=== PATIENT | female | born 1990 | race Caucasian/White ===

== ENCOUNTER 2021-09-12 09:30 | Outpatient (CLI) | payer BC ==
[2021-09-12 19:21] LABS: SARS-CoV-2 PCR by NAA Not Detected (NotDetected)
== END 2021-09-12 09:31 | disposition home or self-care (01) ==
LOC: CSHLAB 09:30
PROVIDERS: ATTEND Obstetrics & Gynecology
DX: Z20.822 Contact with and (suspected) exposure to COVID-19 (principal)
CPT/HCPCS: U0003; U0005

== ENCOUNTER 2021-09-13 09:06 | Inpatient (IN) | payer BC ==
[2021-09-13] MEDS ORDERED: Diphenoxylate HCl/Atropine Tablet PO PRN (10:03)
[2021-09-13] MEDS ORDERED: Promethazine HCl 25 MG/ML VIAL IM PRN ×2 (10:03→17:21)
[2021-09-13] MEDS ORDERED: hydrALAZINE 20 MG/ML VIAL SLOW IVP PRN (10:03)
[2021-09-13] MEDS ORDERED: Methylergonovine 0.2 MG/ML VIAL IM PRN (10:03)
[2021-09-13] MEDS ORDERED: Butorphanol Tartrate 1 MG/ML VIAL SLOW IVP PRN (10:03)
[2021-09-13] MEDS ORDERED: Ibuprofen 800 MG TAB PO PRN (10:03)
[2021-09-13] MEDS ORDERED: Carboprost 250 MCG/ML AMP IM PRN (10:03)
[2021-09-13] MEDS ORDERED: Lidocaine 1% (PF) 30 ML VIAL SC PRN (10:03)
[2021-09-13] MEDS ORDERED: Ondansetron PF 4 MG/2 ML Vial IVP PRN ×2 (10:03→17:21)
[2021-09-13] MEDS ORDERED: Fentanyl 2 mcg/Bup 0.1% Cadd 100 ML ONE ×2 (10:11→17:11)
[2021-09-13 10:12] LABS: Hemoglobin 11.1 g/dL (12.0-15.5); Mean Corpuscular HGB CONC 33.1 g/dL (32.0-36.0); Mean Corpuscular Volume 84.6 fl (81.6-98.3); Mean Platelet Volume 10.5 fl (7.4-10.4); Platelet Count 262 10x3/uL (150-450); RBC Distribution Width 12.7 % (11.5-14.5); Red Blood Cell (RBC) Count 3.96 10x6/uL (3.90-5.03)
[2021-09-13] MEDS ORDERED: NS w/ Oxytocin 30 units 500 ML IV SCH ×2 (10:15)
[2021-09-13 10:16] VITALS: BMI 42.3
[2021-09-13 10:47] LABS: Hep B Surf Ag Non-Reactive S/CO (NonReactive); Syphilis Antibody Nonreactive (Nonreactive); Syphilis Antibody Index 0.05 S/CO (<1.00 Non-Reactive)
[2021-09-13 10:57] LABS: HBSAg Index 0.19 S/CO (0-0.99)
[2021-09-13] MEDS ORDERED: Hydrocerin (Eucerin) Cream 120 gm Jar TOP PRN (17:21)
[2021-09-13] MEDS ORDERED: diphenhydrAMINE 50 MG/ML VIAL IVP PRN (17:21)
[2021-09-13] MEDS ORDERED: Acetaminophen 325 MG TAB PO PRN (17:21)
[2021-09-13] MEDS ORDERED: Naloxone HCl 0.4 mg/ml Vial IVP PRN ×2 (17:21)
[2021-09-13] MEDS ORDERED: Lactated Ringer's 500 ML IV PRN (17:21)
[2021-09-13] MEDS ORDERED: ePHEDrine Sulfate 50 MG/10 ML VIAL SLOW IVP PRN (17:21)
[2021-09-13] MEDS ORDERED: Communication Order-Pharmacy FS SCH (17:30)
[2021-09-13] MEDS ORDERED: Fentanyl 2 mcg/Bupivacaine 0.1% Cassette 100 ML EPIDURAL SCH (17:30)
[2021-09-13] MEDS ORDERED: Bisacodyl 10 MG SUPP PR PRN (19:10)
[2021-09-13] MEDS ORDERED: Milk Of Magnesia 30 ML UDCUP PO PRN (19:10)
[2021-09-13] MEDS ORDERED: Lanolin Ointment 7 GM TUBE TOP PRN (19:10)
[2021-09-13] MEDS ORDERED: Zolpidem Tartrate 5 MG TAB PO PRN (19:10)
[2021-09-13] MEDS ORDERED: Benzocaine-Menthol 82.5 ML CAN TOP PRN (19:10)
[2021-09-13] MEDS: Docusate 100 MG CAP PO SCH (22:12)
[2021-09-13] MEDS ORDERED: Acetaminophen 500 MG TAB PO PRN (22:49)
[2021-09-14 05:42] LABS: Hemoglobin 9.2 g/dL (12.0-15.5)
[2021-09-14] MEDS: Lactated Ringer's 1,000 ML IV SCH ×4 (07:31→19:12)
[2021-09-14] MEDS: Ferrous Sulfate 325 MG TAB PO SCH ×2 (08:25→18:26)
[2021-09-14] MEDS: Docusate 100 MG CAP PO SCH ×2 (08:25→21:35)
[2021-09-14] MEDS: Ibuprofen 800 MG TAB PO PRN (08:31)
[2021-09-15] MEDS: Lactated Ringer's 1,000 ML IV SCH (07:08)
[2021-09-15 08:25] VITALS: BP 125/61; TEMP 98.1
[2021-09-15] MEDS: Ibuprofen 800 MG TAB PO PRN (08:28)
[2021-09-15] MEDS: Ferrous Sulfate 325 MG TAB PO SCH (08:29)
[2021-09-15] MEDS: Docusate 100 MG CAP PO SCH (08:29)
== END 2021-09-15 11:20 | disposition home or self-care (01) | DRG 807 ==
LOC: CSHLD/OP 09:06 → CSHLD 19:24 → CSHPP 21:30
PROVIDERS: ADMIT Obstetrics & Gynecology; ATTEND Obstetrics & Gynecology
PROC: 10E0XZZ Delivery of Products of Conception, External Approach (ICD-10-PCS; principal; 2021-09-13)
PROC: 10907ZC Drainage of Amniotic Fluid, Therapeutic from Products of Conception, Via Natural or Artificial Opening (ICD-10-PCS; 2021-09-13)
DX: O77.0 Labor and delivery complicated by meconium in amniotic fluid (principal); Z37.0 Single live birth; O99.62 Diseases of the digestive system complicating childbirth; O99.02 Anemia complicating childbirth; Z3A.39 39 weeks gestation of pregnancy; K21.9 Gastro-esophageal reflux disease without esophagitis
CPT/HCPCS: 36415; 85014; 85018; 85027; 86780; 86850; 86870; 86900; 86901; 86905; 86922; 87340; J2001; J2590; U0003; U0005